=== PATIENT | male | born 1990 | race Caucasian/White ===

== ENCOUNTER 2024-07-24 16:34 | Emergency (ER) | payer SELFPAY ==
[2024-07-24 17:40] VITALS: BP 148/91; PULSE 106; RESP 16; TEMP 97.9; BMI 28.3
[2024-07-24] MEDS: diazePAM CARPU-JECT 10 MG/2 ML DISP.SYRIN IVPUSH ONE (17:47)
[2024-07-24] MEDS ORDERED: diazePAM CARPU-JECT 10 MG/2 ML DISP.SYRIN ONE (18:04)
[2024-07-24 18:06] LABS: URINE AMPHETAMINES NEGATIVE (NEGATIVE); URINE BARBITURATES NEGATIVE (NEGATIVE); URINE BENZODIAZEPINES NEGATIVE (NEGATIVE)
[2024-07-24 18:07] LABS: COCAINE, UR POSITIVE (NEGATIVE); METHADONE, UR NEGATIVE (NEGATIVE); OPIATES, URI NEGATIVE (NEGATIVE); PHENCYCLIDINE,URINE NEGATIVE (NEGATIVE)
[2024-07-24 19:01] LABS: BILIRUBIN,TOTAL 0.6 mg/dl (0.2-1); CALCIUM 9.9 mg/dl (8.5-10.1); CREATININE 0.8 mg/dl (0.6-1.3); POTASSIUM 3.6 mmol/L (3.5-5.1); TOT PROT 7.6 g/dl (6.4-8.2)
[2024-07-24 19:02] LABS: HEMATOCRIT 45.2 % (35.4-49); HEMOGLOBIN 15.2 G/dL (11.7-16.9); MCH 28.4 pg (25.7-33.7); MCHC 33.7 g/dl (32.0-35.9); MEAN CELL VOLUME 84.3 fl (80-96); MEAN PLT VOLUME 8.7 fl (7.5-11.1); PLATELET COUNT 254.8 10^3/uL (134-434); RBC 5.36 10^6/uL (4.00-5.60); RDW 13.7 % (11.9-15.9); WHITE BLOOD COUNT 12.1 10^3/uL (4.0-10.8)
[2024-07-24 19:39] LABS: PLATELET ESTIMATE ADEQUATE
== END 2024-07-24 20:07 | disposition home or self-care (01) ==
LOC: FER 16:34
PROC: 3E033GC Introduction of Other Therapeutic Substance into Peripheral Vein, Percutaneous Approach (ICD-10-PCS; principal; 2024-07-24)
DX: F41.9 Anxiety disorder, unspecified (principal); F14.90 Cocaine use, unspecified, uncomplicated; F10.10 Alcohol abuse, uncomplicated; Y90.9 Presence of alcohol in blood, level not specified
CPT/HCPCS: 36415; 80053; 80307; 84443; 85027; 99284-25